=== PATIENT | male | born 1935 | race Caucasian/White ===

== ENCOUNTER 2017-09-04 23:57 | Inpatient (IN) | payer MEDICARE ==
[~2017-09-04] VITALS: Ht 182.9 cm; Wt 134.8 kg
--- NOTE | ~2017-09-04 | CN ---
PATIENT NAME:NURIA ROSAS MEDICAL RECORD: [id number] : 39 LOCATION:. D.2134 ADMIT DATE: 09/05/17 ACCOUNT: [id number] CONSULTING PHYSICIAN: TIMO RANDOLPH MD REFERRING PHYSICIAN: TIMOTHY JON MD DATE OF CONSULTATION: 09/23/2017 CONSULT REQUESTING PHYSICIAN: Dr. Ferris. HISTORY OF PRESENT ILLNESS: Mr. Rosas is a 81-year-old gentleman who is a very poor historian. The patient was transferred from another facility on 09/06/2017 for higher level of care. Over there, the patient presented with shortness of breath and having hematemesis and also bleeding. Suprapubic catheter was placed in for urinary retention. He is also complaining of shortness of breath, cough with very little sputum production. Initially, he has leukocytosis up to 23,000 and the patient was in oonef-nf-asnukop renal failure. Now, the repeat chest x-ray on 09/21/2017 showed that the patient has right-sided pleural effusion, which has not been resolving. There is also consolidation of the lower lobe. REVIEW OF SYSTEMS: Mainly in the history of present illness. PAST MEDICAL HISTORY: 1. COPD. 2. Hypertension. 3. Coronary artery disease. 4. Atrial fibrillation. 5. He has a history of skin cancer. 6. He also has history of gastroesophageal reflux disease. 7. Ascites. PAST SURGICAL HISTORY: 1. He has suprapubic catheter placement in the past. 2. Prostatectomy. ALLERGIES: There are no known drug allergies. PRESENT MEDICATIONS: On ethology, it is reviewed. PERSONAL SOCIAL HISTORY: The patient is an ex-smoker. He is a nondrinker. FAMILY HISTORY: Significant for parents have lung disease and cancer. PHYSICAL EXAMINATION: GENERAL: Now, the patient is lying comfortably in bed. He is not in acute distress. VITAL SIGNS: The blood pressure is 100/59, pulse is 70, respirations 18, temperature is 97.8, SpO2 is 97% on 4 liters nasal cannula. HEENT: Conjunctivae pink, sclerae nonicteric. NECK: Neck is supple. No JVD. CHEST: There is decreased breath sound at the right base. There are crackles, wheeze on forceful expiration. HEART: Rhythm regular, normal sound, no murmur. ABDOMEN: Abdomen is soft. Bowel sounds present. No hepatosplenomegaly. RECTAL: Deferred. EXTREMITIES: No cyanosis, no clubbing. There are 2+ pedal edema. CONSULT REPORT [id number] NURIA ROSAS CENTRAL NERVOUS SYSTEM: The patient is awake and alert. There is no obvious cranial nerve abnormality. The gait was not tested. IMAGING: Chest radiograph on 09/21/2017, there is a large right-sided pleural effusion, there is small left-sided pleural effusion, and there is consolidation of the right lower lobe. OTHER LABORATORY DATA: CBC: The WBC is 9.5, hemoglobin 8.8, hematocrit 30.9, and the platelet count 217. Chemistry: Sodium 142, potassium is 4.4, BUN is 41, and creatinine 2.5. IMPRESSION: 1. Acute hypoxic respiratory failure. 2. Left pleural effusion, possible parapneumonic. 3. Pneumonia, right lower lobe, most likely hospital-acquired pneumonia. 4. Leukocytosis. This has been improving. 5. Upntl-qg-sicyrbl renal failure. 6. Cirrhosis of liver. RECOMMENDATION: 1. I will check the CT scan of the chest. Start him on cefepime and Levaquin IV. 2. Supplemental oxygen. 3. Albuterol and ipratropium nebulizer. 4. Brovana and budesonide nebulizer. 5. Stop the Advair inhaler. 6. Further recommendations of the CT scan of the chest. Dr. Ferris, thank you for involving me in the care of Mr. Rosas. TRANSINT:[id number] Voice Confirmation ID: [id number] DOCUMENT ID: [id number] TIMO RANDOLPH MD at 1340 CC: EMIL FERRIS [id number] DICTATION DATE: 09/23/17 1724 AIRLINE RESERVATIONIST: 09/23/17 1849 ADM IN [id number] [place] [address]
--- NOTE | ~2017-09-04 | HEMODYNAMI ---
PATIENT:NURIA SUTTON MEDICAL RECORD: [id number] : 39 [id number] ADMISSION DATE: 09/05/17 Generatedon:09/10/201711:16 Patient name: NURIA SUTTON Patient #: [id number] SSN: : 1935 Date of study: 09/10/2017 Page: Of Hemodynamic Procedure Report Patient Data Patient Demographics Procedure consent was obtained First Name: NURIA Gender: Male Last Name: LESLEY : 1935 Middle Initial: E Age: 81 year(s) Patient #: [id number] Race: Unknown Additional ID: [id number] Contact details Address: [address] [address] State: [place] City: [place] Zip code: [address] Past Medical History Allergies: No known allergies Admission Admission Data Admission Date: 09/05/2017 Admission Time: 2:00 Room #: 2129 Procedure Procedure Types Cath Procedure Peripheral Cath Diagnostic Procedure Nephro Nephrostogram Thru Existing Procedure Description Procedure Date Procedure Date: 09/10/2017 Procedure Start Time: 10:58 Procedure Staff Name Function Yovanny Villanueva MD Performing Physician Anjali Rojas RT Monitor Nabeel Mccann RT Scrub Chetna Cantu RN Nurse Kirk Silva Nurse Procedure Data Cath Procedure Fluoroscopy Diagnostic fluoroscopy Total fluoroscopy Time: 0.9 time: 0.9 min min Diagnostic fluoroscopy Total fluoroscopy dose: 66 dose: 66 mGy mGy Contrast Material Contrast Material Type Amount (ml) Isovue 300 15 Procedure Medications Medication Administration Route Dosage Lidocaine 1% added to field 20 Heparin Flush Bag added to field 1 bags (1000units/500ml NS) Fentanyl I.V. 50 mcg Hemodynamics Rest Heart Rate: 101 (bpm) Snapshots Pre Cath Intra NCS Post Cath Vital Signs Time Heart Resp SPO2 etCO2 NIBP Rhythm Pain Sedation Rate (ipm) (%) (mmHg) (mmHg) Status Level (bpm) 10:48:31 110 92 28.8 No Cuff A-Fib 0 (11) 10(A) , No pain 10:52:06 107 21 92 34.8 122/63(93) A-Fib 0 (11) 10(A) , No pain 10:57:05 150 29 91 36.3 Measuring A-Fib 0 (11) 10(A) , No pain 10:58:13 153 17 91 33.3 Out of A-Fib 0 (11) 10(A) range , No pain 11:01:50 81 64 95 31.8 No Cuff A-Fib 0 (11) 10(A) , No pain 11:03:00 86 16 94 29.5 92/73(82) A-Fib 0 (11) 10(A) , No pain 11:06:59 28 87/47(63) A-Fib 0 (11) 10(A) , No pain 11:09:47 36.3 108/59(80) A-Fib 0 (11) 10(A) , No pain 11:13:47 0 No Cuff A-Fib 0 (11) 10(A) , No pain Medications Time Medication Route Dose Verified Delivered Reason Notes Effec tiveness by by 10:08:07 Lidocaine 1% added 20ml to vial field 10:08:31 Heparin Flush added 1 Bag to bags (1000units/500ml field NS) 10:59:15 Fentanyl I.V. 50 Yovanny [facility] Rich Silva MD Procedure Log Time Note 9:53:44 Use device set IR Diagnostic 9:54:02 Sterile Angiographic Pack opened to sterile field. 9:54:03 Bag Decanter (2002S) opened to sterile field. 10:08:07 Lidocaine 1% 20ml vial added to field was administered by ; ; 10:08:31 Heparin Flush Bag (1000units/500ml NS) 1 bags added to field was administered by ; ; 10:31:10 Chetna Cantu RN sent for patient. Start room use. 10:31:34 Time tracking: Regular hours 10:31:46 Plan of Care:Hemodynamics will remain stable., Cardiac rhythm will remain stable., Comfort level will be maintained., Respiratory function will remain adequate., Patient/ family verbilizes understanding of procedure., Procedure tolerated without complication., Recovers from procedure without complications.. 10:31:57 Patient received from [place] to IR Alert and oriented. Tansferred to table in RIGHT LATERAL position. 10:32:38 Correct patient and procedure confirmed by team. 10:32:43 Signed procedure consent form obtained from patient. 10:33:00 ECG and BP/O2 sat monitors applied to patient. 10:33:09 Full Disclosure recording started 10:33:10 - 10:33:21 H&P Date Dictated: 09/10/2017 Within 30 days and on chart.. 10:33:25 Pre-procedure instructions explained to patient. 10:33:27 Pre-op teaching completed and patient verbalized understanding. 10:33:35 Family unavailable. 10:33:39 Patient NPO since Midnight. 10:34:05 Patient allergic to No known allergies 10:34:19 Is the patient allergic to Iodine/contrast media? No. 10:34:24 Is patient on blood thinner?No 10:34:28 Patient diabetic? No. 10:34:33 - 10:34:35 ----Pre-sedation anethsthesia assessment.---- 10:34:48 Previous problem with sedation/anesthesia? No ? 10:34:55 Snore? Yes 10:35:04 Sleep apnea? No 10:35:15 Deviated septum? No 10:35:19 Opens mouth fully? Yes 10:35:22 Sticks out tongue? Yes 10:36:16 Dentures? No ? 10:36:19 Airway obstruction? No ? 10:36:35 - 10:37:42 Patient pain scale 8/10 STOMACH. 10:37:58 IV patent on arrival in left forearm with 0.9% NaCl at KVO. 10:38:24 LEFTLumbar area was prepped with chlora-prep and draped in sterile fashion 10:39:25 Alarms reviewed by R. N. 10:39:29 Sharps counted by scrub and verified by R.N. 10:39:33 - 10:48:40 VITALS STARTED 10:50:56 Baseline sample Acquired. 10:56:20 Physician arrived 10:56:22 --------ALL STOP TIME OUT------ 10:56:23 Final Timeout: patient, procedure, and site verified with staff and physician. All members of the team are in agreement. 10:56:35 Lumbar site verified by team. 10:57:18 Sedation plan: IV Moderate Sedation Medication:Versed, Fentanyl 10:58:16 Procedure started. 10:59:15 Fentanyl 50 mcg I.V. was administered by Kirk Silva; ; 11:00:19 CONTRAST INJECTED THRU EXISTING NEPH TUBE 11:00:30 right elbow with redness and edema noted prior to starting case 11:02:45 CORAZON .035 15cm wire ([id number]) opened to sterile field. 11:03:47 NEPH TUBE REMOVED 11:04:38 Procedure ended.(Physican Out) 11:05:16 Fluoroscopy time 00.90 minutes. 11:05:26 Flurop Dose total: 66 11:05:26 Fluoroscopy dose: 66 mGy 11:05:35 Contrast amount:Isovue 300 15ml. 11:05:39 Sharps counted by scrub and verified by R.N. 11:05:56 Insertion/operative site no bleeding no hematoma. 11:06:13 Post-op/insertion site Left Lumbar area dressed using a 4 x 4 and Tegaderm. 11:06:28 Post Lumbar area:stable 11:06:42 Post procedure instruction explained to patient.Patient verbalizes understanding. 11:14:42 Procedure and supply charges have been captured, reviewed, submitted an d are correct. 11:15:02 Report given to Med II. 11:15:10 Patient transfered to Med II with Bed. 11:15:59 Vital chart was stopped Device Usage Item Name Manufacture Quantity Catalog Hospital Part Current Minimal Lot# / Number Charge Number Stock Stock Serial# Code Sterile Cardinal 1 [id number] 5 Angiographic Health Pack Bag Decanter Microtek 1 [id number] () [employer] CORAZON .035 [facility] 1 [id number] 5 [id number] 15cm wire ([id number]) Signature Audit Paramount Stage Time Signature Unsigned Intra-Procedure 09/10/2017 Anjali 11:15:56 AM Bob ESPINOZA (R) (CV) Signatures Monitor : Anjali Signature : Bob RT Date : Time : [address] [place] [address]
--- NOTE | ~2017-09-04 | CN ---
PATIENT NAME:NURIA SUTTON MEDICAL RECORD: [id number] : 39 LOCATION:D. D.2134 ADMIT DATE: 09/05/17 ACCOUNT: [id number] CONSULTING PHYSICIAN: JUAN PETTY MD REFERRING PHYSICIAN: TIMOTHY JON MD DATE OF CONSULTATION: 10/03/2017 CONSULTATION NOTE ADDENDUM CHIEF COMPLAINT: Kidney failure. The patient is somnolent. He is arousable, but he cannot give me any history; therefore, he cannot give me any aggravating or alleviating factors and also no review of systems. I am asked to place a hemodialysis catheter. I plan to place this at any site. This is a consultation note addendum. For the typed portion of consult note, please see the chart. This would include the past medical and surgical history, current medications, social history, allergies as well as family history. REVIEW OF SYSTEMS: Unobtainable from the patient due to his somnolence and altered mental status, which I believe is likely metabolic in origin. PHYSICAL EXAMINATION: GENERAL: The patient does appear acutely ill. Also appears chronically ill. VITAL SIGNS: Reviewed. EARS: External ears appear normal. EYES: Unable to assess as he will not keep his eyes open for very long. NECK: Trachea is midline. CHEST: No intercostal retractions. PULMONARY: Decreased breath sounds in the bases. Nonlabored. ABDOMEN: No peritonitis with movement. EXTREMITIES: No peripheral cyanosis. INTEGUMENT: There is an intertriginous rash. IMPRESSION: End-stage renal disease and need of hemodialysis access for hemodialysis. PLAN: Placement of HemoSplit catheter, which is a tunneled cuffed dual-lumen hemodialysis catheter at any site, tomorrow. TRANSINT:[id number] Voice Confirmation ID: [id number] DOCUMENT ID: [id number] JUAN PETTY MD at 1042 CC: [id number] DICTATION DATE: 10/03/17 1238 CVICU NURSE: 10/03/171915 DIS IN 10/12/17 [facility] [address] [place] [address]
--- NOTE | ~2017-09-04 | OP ---
PATIENT NAME: NURIA SUTTON MEDICAL RECORD: [id number] :39 LOCATION:[facility] D.2310 ADMISSION DATE:09/05/17 SURGEON: BALTAZAR LUIS MD DATE OF OPERATION: 09/05/2017 SURGEON: Baltazar Luis MD ANESTHESIA: TIVA by Eric Doyle CRNA PREOPERATIVE DIAGNOSES: Retroperitoneal and pelvic hematoma, gross hematuria, acute renal failure with bilateral hydronephrosis. PROCEDURES: Cystoscopy, right retrograde pyelogram, right ureteral stent insertion 6-Qatari x 26 cm without string attached, Vasquez catheter insertion over a guidewire. FINDINGS: Uncontrolled atrial fibrillation with drop beats on Cardizem drip. 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 No clots in the bladder. Unable to see the suprapubic tube as the bladder is highly distorted by pelvic hematoma. On the right side with retrograde pyelogram, there was hydronephrosis from the renal pelvis to the UV junction with a tortuous corkscrew twisted ureter. We were unable to access the left ureteral orifice as it is facing away from the scope due to distortion from the pelvic hematoma. ESTIMATED BLOOD LOSS: None. CLINICAL HISTORY: This is a 81-year-old male transferred by Dr. Pineda from [facility] with a suprapubic tube that is not draining or draining bloody urine. He had a [facility]Light TURP in February of [address] Mittal of [facility]. He had been in chronic urinary retention. He continues to be in retention. He eventually had a suprapubic tube placed. This tube was changed on 08/31/2017, by his home care nurse. Apparently, he has also had a Citrobacter UTI some time recently. Somehow he ended up in [facility] and he was found to have an elevated D-dimer of 3.35. 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 For whatever reason, they started him on Lovenox and he started having blood in the urine and poor drainage from his bladder. His abdomen is a very distended. He had quite a bit of tenderness on the left side of his abdomen when I examined him. I obtained a stat CT scan in case he had a bladder rupture and urine leak into his peritoneum. What the CT scan showed instead was that he has a very large left rectus muscle hematoma and it is contiguous with a large pelvic hematoma which is extraperitoneal and it is compressing the bladder from the sides laterally. There is also bilateral hydroureteronephrosis. There are no stones seen. Most likely, the hematoma was causing the bilateral obstruction. His baseline creatinine or at least the creatinine that was found in [place] was 2. Today, his creatinine has risen to 4. I am not going to bring him to the OR for bilateral retrograde pyelograms and bilateral ureteral stent insertion. We attempted to do this earlier today, but then he was found to have uncontrolled atrial fibrillation. He was then seen in consultation by Dr. Hay and started on the Cardizem drip to try to control his rate. Initially, his rate was in the 150 range. Because we fear that if we intubate this man he will never be extubated. We decided to try this procedure with TIVA. Because he is under sedation and due to his poor cardiac status, we need to work as expeditiously as possible. DESCRIPTION OF PROCEDURE: The patient was given IV sedation with blanket and OPERATIVE REPORT [id number] NURIA SUTTON pillows giving his chest to be higher about 45 degrees off the bed. He was placed in the dorsal lithotomy position and prepped and draped. A 21-Qatari cystoscope with 30-degree lens was used for visualization. Going in to penile urethra, it was normal. Prostatic urethra at the apex shows signs of previous resection. Then, there are lot of cross healing and scarring and the path to the bladder neck is actually extremely difficult due to stricturing of the bladder neck. I managed to finally get into the bladder with the cystoscope. He has a heavily trabeculated bladder. No bladder tumors are seen. I tried to look for the suprapubic tube, but I cannot find it. The Suprapubic tube is in the bladder according to the CT; however, due to the tortuosity of the bladder, I cannot see it. I am not going to waste time to even look for it either due to the necessity of getting this procedure done as quickly as possible. We did see clear irrigation draining out from the suprapubic tube with cystoscope in his bladder. I had the suprapubic tube clamped off with a hemostat to allow the bladder to distend somewhat. Both ureteral orifices could be seen. However, due to the distortion of the lateral wall by the pelvic hematoma, I could not get into the left ureteral orifice at all. The ureteral orifice was actually facing away from me towards the patient's head. On the right side, I managed to use an angled wire and get into the right ureteral orifice. This was followed by a 5-Qatari open-ended ureteral catheter. We then removed the wire and performed a retrograde pyelogram. This showed a very tortuous and corkscrew twisted ureter. By using a Sensor wire and gradually straightening out the corkscrew with a Sensor wire and following up with a ureteral catheter, we were able to finally get into the right renal pelvis. At this point, the open-ended ureteral catheter was removed. Over the Sensor wire, we inserted the 6-Qatari x 26 cm ureteral stent. The string on the distal end of the stent was removed prior to insertion. Once the stent was in correct position, we slowly withdrew the wire to allow the proximal end to coil within the renal pelvis. Distal end was pushed into the bladder entirely using a pusher and the wire was entirely removed. At this point, because he had been on Lovenox, he started to have gross hematuria in the bladder just from the scope rubbing his bladder surfaces and the prosthetic surface. I decided to put a Vasquez catheter into the urethra also, so that if he needs to have continuous bladder irrigation we can provide it with through and through irrigation with an inflow through the Vasquez catheter and outflow through the suprapubic tube or vice versa. Through the scope, we inserted a Sensor wire into the bladder. The scope was then removed, leaving the wire in place. A 16-Qatari [place] tip Vasquez catheter was then inserted into the bladder over the wire. Once we started at the urinary drainage, we then inflated the Vasquez catheter balloon with 10 cc of sterile water. The wire was then entirely removed and Vasquez catheter was put to bag drainage. In the meantime, the patient is showing an irregular cardiac response to his atrial fibrillation with drop beats. We will put him into the cardiovascular ICU for close monitoring. TRANSINT:[id number] Voice Confirmation ID: [id number] DOCUMENT ID: [id number] BALTAZAR LUIS MD at 0645 CC: [id number] DICTATION DATE: 09/05/172233 IC DESIGNER CUSTOM: 09/05/172323 ADM IN [facility] [address] [place] [address]
--- NOTE | ~2017-09-04 | HEMODYNAMI ---
PATIENT:NURIA SUTTON MEDICAL RECORD: [id number] : 39 LOCATION:[facility] [address] [id number] ADMISSION DATE: 09/05/17 Generatedon:09/07/201712:05 Patient name: NURIA SUTTON Patient #: [id number] SSN: : 1935 Date of study: 09/07/2017 Page: Of Hemodynamic Procedure Report Patient Data Patient Demographics Procedure consent was obtained First Name: NURIA Gender: Male Last Name: LESLEY : 1935 Middle Initial: E Age: 81 year(s) Patient #: [id number] Race: Unknown Additional ID: [id number] Contact details Address: [place] [address] State: [place] City: [place] Zip code: [address] Admission Admission Data Admission Date: 09/05/2017 Admission Time: 2:00 Room #: [facility] Procedure Procedure Types Cath Procedure Peripheral Cath Diagnostic Procedure Nephro Nephrostomy Tubes Procedure Description Procedure Date Procedure Date: 09/07/2017 Procedure Start Time: 10:28 Procedure Staff Name Function Yovanny Villanueva MD Performing Physician Nabeel Mccann RT Monitor Anjali Rojas RT Scrub Chetna Cantu RN Nurse Kirk Partida Procedure Data Cath Procedure Fluoroscopy Diagnostic fluoroscopy Total fluoroscopy Time: time: 19.3 min 19.3 min Diagnostic fluoroscopy Total fluoroscopy dose: dose: 1118 mGy 1118 mGy Contrast Material Contrast Material Type Amount (ml) Isovue 300 50 Diagnostic catheters Device Type Used For End Catheter Placement Merit Impress KA2 5Fr 65CM catheter ([id number]) Procedure Medications Medication Administration Route Dosage Versed I.V. 0.5 mg Hemodynamics Rest Snapshots Pre Cath Intra NCS Post Cath Vital Signs Time Heart SPO2 etCO2 NIBP (mmHg) Rhythm Pain Sedation Rate (%) (mmHg) Status Level (bpm) 10:04:21 133 93 20 106/66(85) NSR 0 (11) 10(A) , No pain 10:08:29 138 92 18 100/80(90) NSR 0 (11) 10(A) , No pain 10:12:37 132 93 20 99/73(81) NSR 0 (11) 10(A) , No pain 10:16:47 133 92 32 115/70(86) NSR 0 (11) 10(A) , No pain 10:21:23 133 95 28 Acquisition NSR 0 (11) 10(A) error , No pain 10:25:12 128 95 29 98/46(0) NSR 0 (11) 10(A) , No pain 10:29:12 127 91 45 95/38(0) NSR 0 (11) 10(A) , No pain 10:33:11 128 90 45 79/55(0) NSR 0 (11) 10(A) , No pain 10:37:11 126 89 45 94/59(0) NSR 0 (11) 10(A) , No pain 10:41:11 122 87 45 85/52(0) NSR 0 (11) 10(A) , No pain 10:50:36 117 95 45 90/58(0) NSR 0 (11) 10(A) , No pain 10:55:35 96 95 45 94/55(0) NSR 0 (11) 10(A) , No pain 11:00:34 108 83 0 90/58(0) NSR 0 (11) 10(A) , No pain 11:05:33 98 90 0 77/53(0) NSR 0 (11) 10(A) , No pain 11:10:32 119 93 0 Auto NIBP NSR 0 (11) 10(A) off , No pain 11:13:00 119 94 0 86/58(0) NSR 0 (11) 10(A) , No pain 11:17:59 119 96 0 86/48(0) NSR 0 (11) 10(A) , No pain 11:22:58 117 96 0 90/51(0) NSR 0 (11) 10(A) , No pain 11:27:57 118 96 0 104/61(0) NSR 0 (11) 10(A) , No pain 11:32:56 117 97 0 90/53(0) NSR 0 (11) 10(A) , No pain 11:37:55 120 98 0 99/61(0) NSR 0 (11) 10(A) , No pain 11:42:54 121 98 0 115/53(0) NSR 0 (11) 10(A) , No pain 11:47:53 106 98 0 72/39(0) NSR 0 (11) 10(A) , No pain 11:52:52 121 97 0 97/65(0) NSR 0 (11) 10(A) , No pain 11:57:51 0 Auto NIBP NSR 0 (11) 10(A) off , No pain 12:02:50 0 Auto NIBP NSR 0 (11) 10(A) off , No pain Medications Time Medication Route Dose Verified Delivered Reason Notes Effective ness by by 10:14:19 Versed I.V. 0.5 Yovanny Bradley for mg Rich Silva sedation Procedure Log Time Note 9:44:30 Nabeel Mccann RT (R) (CV) sent for patient. Start room use. 9:44:38 Time tracking: Regular hours 9:44:54 Plan of Care:Hemodynamics will remain stable., Cardiac rhythm will remain stable., Comfort level will be maintained., Respiratory function will remain adequate., Patient/ family verbilizes understanding of procedure., Procedure tolerated without complication., Recovers from procedure without complications.. 9:45:05 Patient received from ICU to IR Alert and oriented. Tansferred to table in Prone position. 9:45:06 Correct patient and procedure confirmed by team. 9:45:08 Signed procedure consent form obtained from patient. 9:45:09 ECG and BP/O2 sat monitors applied to patient. 9:45:10 Full Disclosure recording started 9:45:10 - 9:45:14 H&P Date Dictated: 09/07/2017 Within 30 days and on chart.. 9:45:14 Pre-procedure instructions explained to patient. 9:45:15 Pre-op teaching completed and patient verbalized understanding. 9:45:17 Family unavailable. 9:45:24 Patient NPO since Midnight. 9:45:30 Use device set IR Diagnostic 9:45:31 Sterile Angiographic Pack opened to sterile field. 9:45:32 Bag Decanter (2002S) opened to sterile field. 9:45:40 Is the patient allergic to Iodine/contrast media? No. 9:45:43 Is patient on blood thinner?No 9:45:45 Patient diabetic? No. 9:45:47 - 9:45:47 ----Pre-sedation anethsthesia assessment.---- 9:46:30 Previous problem with sedation/anesthesia? No ? 9:46:32 Snore? Yes 9:46:35 Sleep apnea? Yes 9:46:37 Deviated septum? No 9:46:38 Opens mouth fully? Yes 9:46:39 Sticks out tongue? Yes 9:46:46 Airway obstruction? Yes copd asthma 9:46:58 Dentures? Yes out 9:47:03 Patient pain scale 0/10 no pain. 9:49:03 IV patent on arrival in right hand with 0.9% NaCl at O. 9:49:06 Sharps counted by scrub and verified by R.N. 9:49:07 Alarms reviewed by R. N. 9:49:22 Lumbar area was prepped with chlora-prep and draped in sterile fashion 10:03:10 Vital chart was started 10:03:11 Baseline sample Acquired. 10:14:19 Versed 0.5 mg I.V. was administered by Kirk Silva; for sedation ; 10:15:29 Baseline sample Acquired. 10:26:05 Physician arrived 10:26:07 --------ALL STOP TIME OUT------ 10:26:08 Final Timeout: patient, procedure, and site verified with staff and physician. All members of the team are in agreement. 10:26:12 Lumbar site verified by team. 10:26:20 Sedation plan: TIVA Medication:Propofol 10:28:18 Procedure started. 10:28:24 Local anesthetic to Lumbar area with Lidocaine 1% by Yovanny Villanueva MD.INITIAL ACCESS ONLY 10:28:33 STOPCOCK 3-Way Large Bore ([id number]) opened to sterile field. 10:28:34 CHIBA 20 X 15 needle opened to sterile field. 10:28:35 KIT, INTRODUCER ACCUSTICK II W/C ([id number]) opened to sterile field. 10:41:06 Vital chart was stopped 10:49:46 Vital chart was started 11:34:39 ROADRUNNER .035 145 glide wire (Y68897) opened to sterile field. 11:34:41 CHIBA 20 X 15 needle opened to sterile field. 11:35:39 A [employer] KA2 5Fr 65CM catheter ([id number]) was advanced over the wire and used for . 11:40:32 GIFFORD 260 wire (H12045) opened to sterile field. 11:40:39 Cofield Sci 8FR X 26 CM Ureteral Stent ([id number]) opened to sterile field. 11:44:23 PEELAWAY 9FR Safe Sheath (SU9) opened to sterile field. 11:44:39 Abscession 8Fr drainage catheter ([id number]) opened to sterile field. 11:50:53 Procedure ended.(Physican Out) 11:54:26 Fluoroscopy time 19.30 minutes. 11:54:33 Fluoroscopy dose: 1118 mGy 11:54:33 Flurop Dose total: 1118 11:54:55 Contrast amount:Isovue 300 50ml. 11:54:58 Sharps counted by scrub and verified by R.N. 11:55:16 Insertion/operative site no bleeding no hematoma. 11:55:21 Post Lumbar area:stable 11:55:24 Post procedure instruction explained to patient.Patient verbalizes understanding. 11:55:25 Procedure and supply charges have been captured, reviewed, submitted an d are correct. 12:05:21 Report given to ICU. 12:05:26 Patient transfered to ICU with Bed. 12:05:54 Vital chart was stopped Device Usage Item Name Manufacture Quantity Catalog Hospital Part Current Minima l Lot# / Number Charge Number Stock Stock Serial# Code Sterile Cardinal 1 [id number] 5 Angiographic Health Pack Bag Decanter Microtek 1 2001S 995167 88685 [id number] 5 (2001S) [employer] Inc[employer] STOPCOCK [facility] 1 [id number] 798513 5958 333739 5 [id number] 3-Way Large Bore (H45274) CHIBA 20 X [facility] 2 L48080 192345 406852 5 [id number] 15 needle [id number] KIT, Cofield 1 [id number] 931503 081289 909517 5 [id number] INTRODUCER Scientific ACCUSTICK II W/C ([id number]) ROADRUNNER [facility] 1 Q49963 777790 192617 253164 5 [id number] .035 145 glide wire (R87865) [facility] 1 [id number] 800512 265215 5 Impress KA2 5Fr 65CM catheter ([id number]) GIFFORD 260 [facility] 1 X02273 920598 021054 5 [id number] wire (X33332) Cofield Sci Cofield 1 [id number] 114181 883884 047806 5 8FR X 26 CM Scientific Ureteral Stent ([id number]) PEELAWAY 9FR Microtek 1 SU9 850978 710897 383826 5 Safe Sheath [employer] (SU9) Abscession Angiodynamics 1 [id number] 560125 534607 906256 5 8Fr drainage catheter ([id number]) Signature Audit Brashear Stage Time Signature Unsigned Intra-Procedure 09/07/2017 Nabeel 12:05:52 PM Shuffield RT (R) (CV) Signatures Monitor : Nabeel Signature : Francineield RT Date : Time : [place] [id number] [facility] [place] [address]
[2017-09-05 02:29] VITALS: BP 121/76; BMI 35.6
[2017-09-05] MEDS ORDERED: ADVAIR 250/501 DISK INH (02:55)
[2017-09-05] MEDS ORDERED: ZYLOPRIM100 MG PO (02:56)
[2017-09-05] MEDS ORDERED: PROSCAR5 MG PO (02:57)
[2017-09-05] MEDS ORDERED: FUROSEMIDE20 MG PO (02:58)
[2017-09-05] MEDS ORDERED: ATROVENT 0.02%2.5 ML UPD (03:01)
[2017-09-05] MEDS ORDERED: BIMATOPROST2.5 ML EACH EYE (03:02)
[2017-09-05] MEDS ORDERED: XALATAN 0.0052.5 ML EACH EYE (03:02)
[2017-09-05] MEDS ORDERED: OMEPRAZOLE20 M1 PO (03:03)
[2017-09-05] MEDS ORDERED: HYTRIN5 MG PO (03:04)
[2017-09-05] MEDS ORDERED: PERCOCET 5-3251 TAB PO (03:05)
[2017-09-05 05:09] VITALS: BP 121/76
[2017-09-05 07:07] LABS: HEMATOCRIT 26.5 % (42.0-54.0); HEMOGLOBIN 8.3 g/dL (13.5-17.5); MCH 27.7 pg (26.0-34.0); MCHC 31.3 g/dL (31.0-37.0); MCV 88.3 fL (80.0-100.0); MEAN PLATELET VOLUME 10.2 fL (7.4-10.4); PLATELET COUNT 296 10x3/uL (130-400); WBC 20.5 10x3/uL (4.8-10.8)
[2017-09-05 07:26] LABS: ALBUMIN 2.2 g/dL (3.4-5.0); ANION GAP 11.8 mmol/L (8-16); BILIRUBIN - TOTAL 0.41 mg/dL (0.2-1.3); CALCIUM 8.6 mg/dL (8.5-10.1); CARBON DIOXIDE 30.2 mmol/L (21.0-32.0); PROTEIN - SERUM 6.3 g/dL (6.4-8.2)
[2017-09-05 07:28] LABS: LYMPHOCYTES 7 % (15-50); MONOCYTES 4 % (2-11); NEUTROPHILS 87 % (40-80); PLATELET ESTIMATE NORMAL
[2017-09-05 07:41] VITALS: BP 116/61
[2017-09-05 08:16] LABS: INR 1.49 (0.85-1.17); PROTIME 17.5 SECONDS (11.6-15.0)
[2017-09-05 10:26] LABS: HEMATOCRIT 26.1 % (42.0-54.0); HEMOGLOBIN 8.3 g/dL (13.5-17.5)
[2017-09-05 15:49] VITALS: BP 95/49
[2017-09-05 16:23] LABS: HEMATOCRIT 25.9 % (42.0-54.0); HEMOGLOBIN 8.2 g/dL (13.5-17.5)
[2017-09-05 20:58] VITALS: BP 88/48
[2017-09-05 23:45] VITALS: BP 105/70
[2017-09-06] VITALS (24 sets, daily range): BP systolic 76–123; BP diastolic 51–79; BMI 39.5
[2017-09-06 00:43] LABS: HEMATOCRIT 23.5 % (42.0-54.0)
[2017-09-06 00:44] LABS: HEMOGLOBIN 7.4 g/dL (13.5-17.5)
[2017-09-06 08:22] LABS: BASOPHILS 0 % (0-2); EOSINOPHILS 0 % (0-7); HEMATOCRIT 26.6 % (42.0-54.0); HEMOGLOBIN 8.4 g/dL (13.5-17.5); IMMATURE GRANULOCYTES 0.6 % (0-5); LYMPHOCYTES 6.3 % (15-50); MCH 27.8 pg (26.0-34.0); MCHC 31.6 g/dL (31.0-37.0); MCV 88.1 fL (80.0-100.0); MEAN PLATELET VOLUME 9.3 fL (7.4-10.4); MONOCYTES 12.9 % (2-11); NEUTROPHILS 80.2 % (40-80); PLATELET COUNT 244 10x3/uL (130-400); RBC 3.02 10x6/uL (4.20-6.10); RDW 14.8 % (11.5-14.5)
[2017-09-06 08:40] LABS: CALCIUM 8.2 mg/dL (8.5-10.1); CARBON DIOXIDE 29.9 mmol/L (21.0-32.0); CREATININE - SERUM 4.5 mg/dL (0.6-1.3)
[2017-09-06 08:42] LABS: ANION GAP 10.1 mmol/L (8-16)
[2017-09-06 15:02] LABS: APPEARANCE CLOUDY (CLEAR); BILIRUBIN NEGATIVE (NEGATIVE); COLOR BROWN (YELLOW); GLUCOSE NEGATIVE (NEGATIVE); KETONE NEGATIVE (NEGATIVE); NITRITE NEGATIVE (NEGATIVE); PROTEIN 3+ mg/dL (NEGATIVE); SPECIFIC GRAVITY 1.015 (1.005-1.020); UROBILINOGEN NORMAL (NORMAL)
[2017-09-06 15:04] LABS: BACTERIA MODERATE /hpf (NONE SEEN); EPITHELIAL CELLS 0-5 /hpf (0-5); MUCUS <1+ /lpf (NONE SEEN); RED CELLS - URINE >50 /hpf (0-5)
[2017-09-06 15:40] LABS: HEMATOCRIT 24.6 % (42.0-54.0); HEMOGLOBIN 8.3 g/dL (13.5-17.5)
[2017-09-06 21:53] LABS: HEMATOCRIT 25.1 % (42.0-54.0); HEMOGLOBIN 8.3 g/dL (13.5-17.5)
[2017-09-07] VITALS (22 sets, daily range): BP systolic 85–123; BP diastolic 23–83
[2017-09-07 04:39] LABS: APTT 38.4 SECONDS (22.8-39.4); HEMATOCRIT 24.4 % (42.0-54.0); INR 1.28 (0.85-1.17); LYMPHOCYTES 8.1 % (15-50); MCH 28.6 pg (26.0-34.0); MCHC 32.8 g/dL (31.0-37.0); MCV 87.1 fL (80.0-100.0); MEAN PLATELET VOLUME 9.3 fL (7.4-10.4); PLATELET COUNT 288 10x3/uL (130-400); PROTIME 15.6 SECONDS (11.6-15.0); RDW 15.1 % (11.5-14.5); WBC 18.3 10x3/uL (4.8-10.8)
[2017-09-07 04:51] LABS: ANION GAP 12.7 mmol/L (8-16); CALCIUM 8.5 mg/dL (8.5-10.1); CARBON DIOXIDE 25.7 mmol/L (21.0-32.0); CREATININE - SERUM 3.9 mg/dL (0.6-1.3); POTASSIUM - SERUM 5.4 mmol/L (3.5-5.1)
[2017-09-07 12:16] LABS: HEMATOCRIT 25.1 % (42.0-54.0); HEMOGLOBIN 8.1 g/dL (13.5-17.5)
[2017-09-07 18:47] LABS: HEMATOCRIT 24.2 % (42.0-54.0); HEMOGLOBIN 7.7 g/dL (13.5-17.5)
[2017-09-08] VITALS (23 sets, daily range): BP systolic 86–119; BP diastolic 48–85
[2017-09-08 00:47] LABS: HEMATOCRIT 22.8 % (42.0-54.0)
[2017-09-08 01:03] LABS: HEMOGLOBIN 7.2 g/dL (13.5-17.5)
[2017-09-08 06:07] LABS: BASOPHILS 0 % (0-2); EOSINOPHILS 0.1 % (0-7); HEMATOCRIT 23.4 % (42.0-54.0); IMMATURE GRANULOCYTES 0.4 % (0-5); LYMPHOCYTES 6.6 % (15-50); MCH 27.8 pg (26.0-34.0); MCHC 31.2 g/dL (31.0-37.0); MEAN PLATELET VOLUME 9.4 fL (7.4-10.4); MONOCYTES 11.8 % (2-11); NEUTROPHILS 81.1 % (40-80); PLATELET COUNT 264 10x3/uL (130-400); RBC 2.63 10x6/uL (4.20-6.10); RDW 15.5 % (11.5-14.5); WBC 13.8 10x3/uL (4.8-10.8)
[2017-09-08 06:46] LABS: HEMOGLOBIN 7.3 g/dL (13.5-17.5)
[2017-09-08 07:01] LABS: ANION GAP 12.6 mmol/L (8-16); CARBON DIOXIDE 25.3 mmol/L (21.0-32.0); CREATININE - SERUM 3.1 mg/dL (0.6-1.3); POTASSIUM - SERUM 4.9 mmol/L (3.5-5.1)
[2017-09-08 12:48] LABS: APPEARANCE CLOUDY (CLEAR); BILIRUBIN NEGATIVE (NEGATIVE); COLOR PINK (YELLOW); EPITHELIAL CELLS OCC /hpf (0-5); GLUCOSE NEGATIVE (NEGATIVE); KETONE NEGATIVE (NEGATIVE); NITRITE NEGATIVE (NEGATIVE); PROTEIN 3+ mg/dL (NEGATIVE); RED CELLS - URINE >50 /hpf (0-5); UROBILINOGEN NORMAL (NORMAL)
[2017-09-08 12:49] LABS: BACTERIA FEW /hpf (NONE SEEN); MUCUS <1+ /lpf (NONE SEEN)
[2017-09-08 18:19] LABS: HEMATOCRIT 26.4 % (42.0-54.0); HEMOGLOBIN 8.4 g/dL (13.5-17.5)
[2017-09-08 21:36] LABS: HEMOGLOBIN 8.6 g/dL (13.5-17.5)
[2017-09-09] VITALS (10 sets, daily range): BP systolic 93–116; BP diastolic 53–70
[2017-09-09 04:31] LABS: BASOPHILS 0.1 % (0-2); EOSINOPHILS 0.4 % (0-7); HEMATOCRIT 28.2 % (42.0-54.0); HEMOGLOBIN 8.8 g/dL (13.5-17.5); IMMATURE GRANULOCYTES 0.5 % (0-5); LYMPHOCYTES 7.8 % (15-50); MCH 27.8 pg (26.0-34.0); MCHC 31.2 g/dL (31.0-37.0); MCV 89.2 fL (80.0-100.0); MEAN PLATELET VOLUME 9.5 fL (7.4-10.4); NEUTROPHILS 77.2 % (40-80); PLATELET COUNT 258 10x3/uL (130-400); RDW 16.5 % (11.5-14.5); WBC 14.4 10x3/uL (4.8-10.8)
[2017-09-09 04:43] LABS: RBC 3.16 10x6/uL (4.20-6.10)
[2017-09-09 04:47] LABS: CALCIUM 8.1 mg/dL (8.5-10.1); CARBON DIOXIDE 28.3 mmol/L (21.0-32.0); CREATININE - SERUM 2.5 mg/dL (0.6-1.3); POTASSIUM - SERUM 4.3 mmol/L (3.5-5.1)
[2017-09-09 10:00] LABS: HEMATOCRIT 29.1 % (42.0-54.0)
[2017-09-09 16:32] LABS: HEMATOCRIT 28.1 % (42.0-54.0); HEMOGLOBIN 8.8 g/dL (13.5-17.5)
[2017-09-09 22:37] LABS: HEMATOCRIT 28.4 % (42.0-54.0); HEMOGLOBIN 8.7 g/dL (13.5-17.5)
[2017-09-10] VITALS (11 sets, daily range): BP systolic 97–138; BP diastolic 47–80
[2017-09-10 04:59] LABS: BASOPHILS 0.1 % (0-2); EOSINOPHILS 0.7 % (0-7); HEMATOCRIT 28.6 % (42.0-54.0); HEMOGLOBIN 8.8 g/dL (13.5-17.5); IMMATURE GRANULOCYTES 0.6 % (0-5); LYMPHOCYTES 5.2 % (15-50); MCH 27.8 pg (26.0-34.0); MCHC 30.8 g/dL (31.0-37.0); MCV 90.2 fL (80.0-100.0); MEAN PLATELET VOLUME 9.5 fL (7.4-10.4); MONOCYTES 14.8 % (2-11); NEUTROPHILS 78.6 % (40-80); PLATELET COUNT 257 10x3/uL (130-400); RBC 3.17 10x6/uL (4.20-6.10); RDW 16.7 % (11.5-14.5); WBC 17.6 10x3/uL (4.8-10.8)
[2017-09-10 05:05] LABS: ANION GAP 9.5 mmol/L (8-16); CALCIUM 8.2 mg/dL (8.5-10.1); CARBON DIOXIDE 26.4 mmol/L (21.0-32.0); CREATININE - SERUM 2.2 mg/dL (0.6-1.3); POTASSIUM - SERUM 3.9 mmol/L (3.5-5.1)
[2017-09-10 09:52] LABS: HEMATOCRIT 28.1 % (42.0-54.0); HEMOGLOBIN 8.8 g/dL (13.5-17.5)
[2017-09-10 16:21] LABS: HEMATOCRIT 27.8 % (42.0-54.0); HEMOGLOBIN 8.7 g/dL (13.5-17.5)
[2017-09-10 22:36] LABS: HEMATOCRIT 28.2 % (42.0-54.0); HEMOGLOBIN 8.6 g/dL (13.5-17.5)
[2017-09-11 00:51] VITALS: BP 98/45
[2017-09-11 04:32] VITALS: BP 104/54
[2017-09-11 04:42] LABS: BASOPHILS 0.1 % (0-2); EOSINOPHILS 1.2 % (0-7); HEMATOCRIT 28.8 % (42.0-54.0); HEMOGLOBIN 8.9 g/dL (13.5-17.5); IMMATURE GRANULOCYTES 0.5 % (0-5); LYMPHOCYTES 6.8 % (15-50); MCH 27.7 pg (26.0-34.0); MCHC 30.9 g/dL (31.0-37.0); MCV 89.7 fL (80.0-100.0); MEAN PLATELET VOLUME 9.7 fL (7.4-10.4); MONOCYTES 13.4 % (2-11); PLATELET COUNT 248 10x3/uL (130-400); RBC 3.21 10x6/uL (4.20-6.10); RDW 16.6 % (11.5-14.5); WBC 18.7 10x3/uL (4.8-10.8)
[2017-09-11 04:55] LABS: ALBUMIN 1.6 g/dL (3.4-5.0); ANION GAP 9.2 mmol/L (8-16); BILIRUBIN - TOTAL 1.34 mg/dL (0.2-1.3); CALCIUM 8.6 mg/dL (8.5-10.1); CARBON DIOXIDE 26.4 mmol/L (21.0-32.0); CREATININE - SERUM 2.2 mg/dL (0.6-1.3); POTASSIUM - SERUM 3.6 mmol/L (3.5-5.1); PROTEIN - SERUM 6.2 g/dL (6.4-8.2)
[2017-09-11 07:54] VITALS: BP 100/61
[2017-09-11 09:49] LABS: HEMATOCRIT 28.8 % (42.0-54.0); HEMOGLOBIN 8.9 g/dL (13.5-17.5)
[2017-09-11 11:28] VITALS: BP 84/52
[2017-09-11 15:22] VITALS: BP 96/62
[2017-09-11 15:53] LABS: HEMATOCRIT 29.7 % (42.0-54.0); HEMOGLOBIN 9.2 g/dL (13.5-17.5)
[2017-09-11 19:00] VITALS: BP 110/64
[2017-09-11 22:39] LABS: HEMATOCRIT 28.5 % (42.0-54.0); HEMOGLOBIN 8.8 g/dL (13.5-17.5)
[2017-09-12] VITALS: BP 104/62
[2017-09-12 04:00] VITALS: BP 114/65
[2017-09-12 05:36] LABS: BASOPHILS 0.1 % (0-2); EOSINOPHILS 1.2 % (0-7); HEMATOCRIT 29.3 % (42.0-54.0); IMMATURE GRANULOCYTES 0.6 % (0-5); LYMPHOCYTES 6.2 % (15-50); MCH 27.6 pg (26.0-34.0); MCHC 30.7 g/dL (31.0-37.0); MCV 89.9 fL (80.0-100.0); MEAN PLATELET VOLUME 9.6 fL (7.4-10.4); MONOCYTES 9.5 % (2-11); NEUTROPHILS 82.4 % (40-80); PLATELET COUNT 258 10x3/uL (130-400); RBC 3.26 10x6/uL (4.20-6.10); RDW 16.7 % (11.5-14.5); WBC 16.9 10x3/uL (4.8-10.8)
[2017-09-12 05:50] LABS: ALBUMIN 1.6 g/dL (3.4-5.0); ANION GAP 10.3 mmol/L (8-16); BILIRUBIN - TOTAL 1.44 mg/dL (0.2-1.3); CALCIUM 8.6 mg/dL (8.5-10.1); CARBON DIOXIDE 25.1 mmol/L (21.0-32.0); CREATININE - SERUM 2.2 mg/dL (0.6-1.3); POTASSIUM - SERUM 3.4 mmol/L (3.5-5.1); PROTEIN - SERUM 6.1 g/dL (6.4-8.2)
[2017-09-12 08:24] VITALS: BP 96/64
[2017-09-12 09:57] LABS: HEMATOCRIT 29.2 % (42.0-54.0); HEMOGLOBIN 9.1 g/dL (13.5-17.5)
[2017-09-12 11:36] VITALS: BP 100/60
[2017-09-12 15:41] VITALS: BP 108/68
[2017-09-12 15:49] LABS: HEMATOCRIT 29.1 % (42.0-54.0)
[2017-09-12 20:00] VITALS: BP 126/58
[2017-09-12 22:14] LABS: HEMATOCRIT 28.6 % (42.0-54.0); HEMOGLOBIN 8.8 g/dL (13.5-17.5)
[2017-09-13] VITALS: BP 128/70
[2017-09-13 04:00] VITALS: BP 130/60
[2017-09-13 05:54] LABS: BASOPHILS 0.1 % (0-2); EOSINOPHILS 1.5 % (0-7); HEMATOCRIT 29.1 % (42.0-54.0); IMMATURE GRANULOCYTES 0.5 % (0-5); LYMPHOCYTES 6.9 % (15-50); MCH 27.8 pg (26.0-34.0); MCHC 30.9 g/dL (31.0-37.0); MCV 89.8 fL (80.0-100.0); MEAN PLATELET VOLUME 9.8 fL (7.4-10.4); MONOCYTES 8.5 % (2-11); NEUTROPHILS 82.5 % (40-80); PLATELET COUNT 305 10x3/uL (130-400); RBC 3.24 10x6/uL (4.20-6.10); RDW 16.6 % (11.5-14.5); WBC 15.6 10x3/uL (4.8-10.8)
[2017-09-13 06:27] LABS: ALBUMIN 1.6 g/dL (3.4-5.0); ANION GAP 12.9 mmol/L (8-16); BILIRUBIN - TOTAL 1.37 mg/dL (0.2-1.3); CALCIUM 8.7 mg/dL (8.5-10.1); CARBON DIOXIDE 25.8 mmol/L (21.0-32.0); POTASSIUM - SERUM 3.7 mmol/L (3.5-5.1); PROTEIN - SERUM 6.3 g/dL (6.4-8.2)
[2017-09-13 08:42] VITALS: BP 106/63
[2017-09-13 09:45] LABS: HEMATOCRIT 29.5 % (42.0-54.0)
[2017-09-13 11:43] VITALS: BP 102/64
[2017-09-13 15:57] LABS: HEMATOCRIT 29.8 % (42.0-54.0); HEMOGLOBIN 9.1 g/dL (13.5-17.5)
[2017-09-13 17:20] VITALS: BP 107/60
[2017-09-13 20:00] VITALS: BP 119/51
[2017-09-13 21:58] LABS: HEMATOCRIT 29.7 % (42.0-54.0); HEMOGLOBIN 8.9 g/dL (13.5-17.5)
[2017-09-14 04:00] VITALS: BP 116/71
[2017-09-14 08:30] VITALS: BP 120/58
[2017-09-14 11:05] LABS: BASOPHILS 0.1 % (0-2); EOSINOPHILS 1.8 % (0-7); HEMATOCRIT 28.8 % (42.0-54.0); HEMOGLOBIN 8.8 g/dL (13.5-17.5); IMMATURE GRANULOCYTES 0.5 % (0-5); LYMPHOCYTES 6.7 % (15-50); MCH 27.4 pg (26.0-34.0); MCHC 30.6 g/dL (31.0-37.0); MCV 89.7 fL (80.0-100.0); MEAN PLATELET VOLUME 9.2 fL (7.4-10.4); NEUTROPHILS 83.9 % (40-80); PLATELET COUNT 295 10x3/uL (130-400); RBC 3.21 10x6/uL (4.20-6.10); RDW 16.4 % (11.5-14.5); WBC 15.3 10x3/uL (4.8-10.8)
[2017-09-14 11:17] LABS: ALBUMIN 1.6 g/dL (3.4-5.0); ANION GAP 6.2 mmol/L (8-16); BILIRUBIN - TOTAL 1.23 mg/dL (0.2-1.3); CALCIUM 8.5 mg/dL (8.5-10.1); CARBON DIOXIDE 30.4 mmol/L (21.0-32.0); CREATININE - SERUM 1.9 mg/dL (0.6-1.3); POTASSIUM - SERUM 3.6 mmol/L (3.5-5.1); PROTEIN - SERUM 6.4 g/dL (6.4-8.2)
[2017-09-14 11:53] VITALS: BP 126/79
[2017-09-14 16:02] VITALS: BP 112/57
[2017-09-14 20:00] VITALS: BP 116/62
[2017-09-15] VITALS: BP 130/70
[2017-09-15 04:00] VITALS: BP 134/74
[2017-09-15 08:05] VITALS: BP 113/83
[2017-09-15 11:21] VITALS: BP 106/73
[2017-09-15 16:02] VITALS: BP 111/63
[2017-09-15 19:00] VITALS: BP 103/69
[2017-09-16] VITALS: BP 97/58
[2017-09-16 03:35] VITALS: BP 110/63
[2017-09-16 05:16] LABS: BASOPHILS 0.1 % (0-2); EOSINOPHILS 2.1 % (0-7); HEMATOCRIT 26.4 % (42.0-54.0); HEMOGLOBIN 8.1 g/dL (13.5-17.5); IMMATURE GRANULOCYTES 0.3 % (0-5); LYMPHOCYTES 6.1 % (15-50); MCH 27.5 pg (26.0-34.0); MCHC 30.7 g/dL (31.0-37.0); MCV 89.5 fL (80.0-100.0); MEAN PLATELET VOLUME 9.3 fL (7.4-10.4); MONOCYTES 5.6 % (2-11); NEUTROPHILS 85.8 % (40-80); PLATELET COUNT 262 10x3/uL (130-400); RBC 2.95 10x6/uL (4.20-6.10); RDW 16.6 % (11.5-14.5); WBC 12.7 10x3/uL (4.8-10.8)
[2017-09-16 05:46] LABS: ANION GAP 10.9 mmol/L (8-16); CARBON DIOXIDE 26.1 mmol/L (21.0-32.0); CREATININE - SERUM 1.7 mg/dL (0.6-1.3)
[2017-09-16 07:59] VITALS: BP 75/38
[2017-09-16 11:12] VITALS: BP 100/46
[2017-09-16 15:11] VITALS: BP 92/52
[2017-09-16 20:00] VITALS: BP 109/61
[2017-09-17 08:53] VITALS: BP 94/65
[2017-09-17 13:36] VITALS: BP 95/63
[2017-09-17 16:27] VITALS: BP 93/56
[2017-09-17 20:00] VITALS: BP 105/59
[2017-09-18] VITALS: BP 90/70
[2017-09-18 04:00] VITALS: BP 115/61
[2017-09-18 06:00] LABS: BASOPHILS 0.2 % (0-2); EOSINOPHILS 1.8 % (0-7); HEMATOCRIT 29.2 % (42.0-54.0); HEMOGLOBIN 8.6 g/dL (13.5-17.5); IMMATURE GRANULOCYTES 0.4 % (0-5); LYMPHOCYTES 6.7 % (15-50); MCH 27.7 pg (26.0-34.0); MCHC 29.5 g/dL (31.0-37.0); MCV 93.9 fL (80.0-100.0); MONOCYTES 5.1 % (2-11); NEUTROPHILS 85.8 % (40-80); PLATELET COUNT 269 10x3/uL (130-400); RBC 3.11 10x6/uL (4.20-6.10); RDW 17.3 % (11.5-14.5); WBC 13.2 10x3/uL (4.8-10.8)
[2017-09-18 06:14] LABS: ANION GAP 8.9 mmol/L (8-16); CALCIUM 7.9 mg/dL (8.5-10.1); CARBON DIOXIDE 27.5 mmol/L (21.0-32.0); CREATININE - SERUM 1.6 mg/dL (0.6-1.3); POTASSIUM - SERUM 3.4 mmol/L (3.5-5.1)
[2017-09-18 07:45] VITALS: BP 134/62
[2017-09-18 10:50] VITALS: BP 132/68
[2017-09-18 14:58] VITALS: BP 139/67
[2017-09-18 21:40] VITALS: BP 103/69
[2017-09-19] VITALS (8 sets, daily range): BP systolic 95–164; BP diastolic 53–80
[2017-09-19 05:40] LABS: BASOPHILS 0.1 % (0-2); EOSINOPHILS 1.4 % (0-7); HEMATOCRIT 29.1 % (42.0-54.0); HEMOGLOBIN 8.4 g/dL (13.5-17.5); IMMATURE GRANULOCYTES 0.4 % (0-5); LYMPHOCYTES 7.1 % (15-50); MCH 27.2 pg (26.0-34.0); MCHC 28.9 g/dL (31.0-37.0); MCV 94.2 fL (80.0-100.0); MEAN PLATELET VOLUME 9.5 fL (7.4-10.4); MONOCYTES 5.9 % (2-11); NEUTROPHILS 85.1 % (40-80); PLATELET COUNT 232 10x3/uL (130-400); RBC 3.09 10x6/uL (4.20-6.10); RDW 17.5 % (11.5-14.5); WBC 11.2 10x3/uL (4.8-10.8)
[2017-09-19 06:07] LABS: ANION GAP 9.4 mmol/L (8-16); CALCIUM 8.5 mg/dL (8.5-10.1); CARBON DIOXIDE 28.1 mmol/L (21.0-32.0); CREATININE - SERUM 1.7 mg/dL (0.6-1.3); POTASSIUM - SERUM 3.5 mmol/L (3.5-5.1)
[2017-09-20 00:15] VITALS: BP 95/61
[2017-09-20 06:00] VITALS: BP 112/74
[2017-09-20 07:50] VITALS: BP 110/71
[2017-09-20 12:00] VITALS: BP 108/69
[2017-09-20 16:27] VITALS: BP 104/64
[2017-09-20 20:00] VITALS: BP 97/65
[2017-09-21] VITALS: BP 132/54
[2017-09-21 05:57] VITALS: BP 113/72
[2017-09-21 06:32] LABS: ANION GAP 9.1 mmol/L (8-16); CALCIUM 8.2 mg/dL (8.5-10.1); CARBON DIOXIDE 29.2 mmol/L (21.0-32.0); CREATININE - SERUM 1.7 mg/dL (0.6-1.3); POTASSIUM - SERUM 4.3 mmol/L (3.5-5.1)
[2017-09-21 06:44] LABS: BASOPHILS 0.1 % (0-2); EOSINOPHILS 0.3 % (0-7); HEMATOCRIT 30.7 % (42.0-54.0); HEMOGLOBIN 8.8 g/dL (13.5-17.5); IMMATURE GRANULOCYTES 0.3 % (0-5); LYMPHOCYTES 6.1 % (15-50); MCH 27.3 pg (26.0-34.0); MCHC 28.7 g/dL (31.0-37.0); MCV 95.3 fL (80.0-100.0); MEAN PLATELET VOLUME 10.7 fL (7.4-10.4); MONOCYTES 5.9 % (2-11); NEUTROPHILS 87.3 % (40-80); PLATELET COUNT 231 10x3/uL (130-400); RBC 3.22 10x6/uL (4.20-6.10); RDW 17.9 % (11.5-14.5); WBC 11.6 10x3/uL (4.8-10.8)
[2017-09-21 09:37] VITALS: BP 114/68
[2017-09-21 11:50] VITALS: BP 112/58
[2017-09-21 16:20] VITALS: BP 102/55
[2017-09-21 20:00] VITALS: BP 103/64
[2017-09-22] VITALS: BP 110/63
[2017-09-22 04:00] VITALS: BP 100/58
[2017-09-22 06:03] LABS: ANION GAP 10.9 mmol/L (8-16); CALCIUM 8.5 mg/dL (8.5-10.1); CARBON DIOXIDE 28.4 mmol/L (21.0-32.0); POTASSIUM - SERUM 4.3 mmol/L (3.5-5.1)
[2017-09-22 06:27] LABS: BASOPHILS 0.1 % (0-2); EOSINOPHILS 0.8 % (0-7); HEMATOCRIT 31.7 % (42.0-54.0); HEMOGLOBIN 8.9 g/dL (13.5-17.5); IMMATURE GRANULOCYTES 0.6 % (0-5); LYMPHOCYTES 5.6 % (15-50); MCH 27.6 pg (26.0-34.0); MCHC 28.1 g/dL (31.0-37.0); MEAN PLATELET VOLUME 10.7 fL (7.4-10.4); MONOCYTES 7.5 % (2-11); NEUTROPHILS 85.4 % (40-80); PLATELET COUNT 210 10x3/uL (130-400); RBC 3.22 10x6/uL (4.20-6.10); RDW 17.8 % (11.5-14.5); WBC 9.7 10x3/uL (4.8-10.8)
[2017-09-22 06:28] LABS: MCV 98.4 fL (80.0-100.0)
[2017-09-22 08:37] VITALS: BP 109/63
[2017-09-22 12:35] VITALS: BP 101/61
[2017-09-22 16:35] VITALS: BP 105/57
[2017-09-22 21:41] VITALS: BP 77/39
[2017-09-23 00:41] VITALS: BP 108/43
[2017-09-23 05:32] VITALS: BP 102/55
[2017-09-23 06:44] LABS: BASOPHILS 0.3 % (0-2); EOSINOPHILS 1.3 % (0-7); HEMATOCRIT 30.9 % (42.0-54.0); HEMOGLOBIN 8.8 g/dL (13.5-17.5); IMMATURE GRANULOCYTES 0.5 % (0-5); LYMPHOCYTES 7.5 % (15-50); MCH 27.8 pg (26.0-34.0); MCHC 28.5 g/dL (31.0-37.0); MCV 97.5 fL (80.0-100.0); MEAN PLATELET VOLUME 11.1 fL (7.4-10.4); MONOCYTES 8.1 % (2-11); NEUTROPHILS 82.3 % (40-80); PLATELET COUNT 217 10x3/uL (130-400); RBC 3.17 10x6/uL (4.20-6.10); RDW 18.1 % (11.5-14.5); WBC 9.5 10x3/uL (4.8-10.8)
[2017-09-23 06:50] LABS: ANION GAP 11.1 mmol/L (8-16); CALCIUM 8.4 mg/dL (8.5-10.1); CARBON DIOXIDE 28.3 mmol/L (21.0-32.0); CREATININE - SERUM 2.5 mg/dL (0.6-1.3); POTASSIUM - SERUM 4.4 mmol/L (3.5-5.1)
[2017-09-23 07:33] VITALS: BP 105/64
[2017-09-23 11:31] VITALS: BP 107/68
[2017-09-23 15:56] VITALS: BP 100/59
[2017-09-23 20:00] VITALS: BP 110/62
[2017-09-24] VITALS: BP 114/80
[2017-09-24 05:44] LABS: BASOPHILS 0.1 % (0-2); EOSINOPHILS 0 % (0-7); HEMATOCRIT 29.4 % (42.0-54.0); HEMOGLOBIN 8.7 g/dL (13.5-17.5); IMMATURE GRANULOCYTES 0.4 % (0-5); LYMPHOCYTES 3.3 % (15-50); MCH 27.9 pg (26.0-34.0); MCHC 29.6 g/dL (31.0-37.0); MONOCYTES 1.4 % (2-11); NEUTROPHILS 94.8 % (40-80); PLATELET COUNT 207 10x3/uL (130-400); RBC 3.12 10x6/uL (4.20-6.10); RDW 18.3 % (11.5-14.5)
[2017-09-24 05:51] LABS: MCV 94.2 fL (80.0-100.0)
[2017-09-24 06:04] LABS: ANION GAP 11.9 mmol/L (8-16); CARBON DIOXIDE 26.7 mmol/L (21.0-32.0); CREATININE - SERUM 2.7 mg/dL (0.6-1.3); POTASSIUM - SERUM 4.6 mmol/L (3.5-5.1)
[2017-09-24 09:51] VITALS: BP 121/79
[2017-09-24 10:45] VITALS: BP 132/81
[2017-09-24 15:35] VITALS: BP 138/88
[2017-09-24 20:54] VITALS: BP 113/68
[2017-09-25] VITALS (19 sets, daily range): BP systolic 90–115; BP diastolic 58–87; Ht 182.9 cm; Wt 134.8 kg
[2017-09-25 05:45] LABS: BASOPHILS 0 % (0-2); EOSINOPHILS 0 % (0-7); HEMATOCRIT 29.3 % (42.0-54.0); HEMOGLOBIN 8.6 g/dL (13.5-17.5); IMMATURE GRANULOCYTES 0.2 % (0-5); LYMPHOCYTES 4.1 % (15-50); MCH 27.3 pg (26.0-34.0); MCHC 29.4 g/dL (31.0-37.0); MEAN PLATELET VOLUME 10.9 fL (7.4-10.4); MONOCYTES 5.1 % (2-11); NEUTROPHILS 90.6 % (40-80); PLATELET COUNT 216 10x3/uL (130-400); RBC 3.15 10x6/uL (4.20-6.10); RDW 18.6 % (11.5-14.5); WBC 8.5 10x3/uL (4.8-10.8)
[2017-09-25 06:02] LABS: ANION GAP 11.3 mmol/L (8-16); CARBON DIOXIDE 26.2 mmol/L (21.0-32.0); POTASSIUM - SERUM 4.5 mmol/L (3.5-5.1)
[2017-09-25 06:32] LABS: APTT 30.1 SECONDS (22.8-39.4); INR 1.23 (0.85-1.17); PROTIME 15.1 SECONDS (11.6-15.0)
[2017-09-25 13:12] LABS: PROTEIN - BODY FLUID 1.1 G/DL
[2017-09-25 13:47] LABS: MACROPHAGES BF 14 %
[2017-09-25 16:11] LABS: CHOLESTEROL - BODY FLUID 14 mg/dL; TRIGLYCERIDE - BODY FLUID 3 mg/dL
[2017-09-26] VITALS (13 sets, daily range): BP systolic 94–113; BP diastolic 59–80
[2017-09-26 06:28] LABS: CREATININE - URINE 84.1 mg/dL (30-125); PRO/CRE RATIO URINE 2.8 mg/g; PROTEIN - URINE 234.2 mg/dL (0.0-11.9)
[2017-09-26 06:29] LABS: APPEARANCE CLOUDY (CLEAR); BILIRUBIN NEGATIVE (NEGATIVE); COLOR DK YELLOW (YELLOW); GLUCOSE 50 mg/dL (NEGATIVE); KETONE NEGATIVE (NEGATIVE); NITRITE NEGATIVE (NEGATIVE); PROTEIN 2+ mg/dL (NEGATIVE); SPECIFIC GRAVITY 1.015 (1.005-1.020); UROBILINOGEN NORMAL (NORMAL)
[2017-09-26 06:34] LABS: BACTERIA MODERATE /hpf (NONE SEEN); EPITHELIAL CELLS 0-5 /hpf (0-5)
[2017-09-26 07:45] LABS: BASOPHILS 0 % (0-2); EOSINOPHILS 0 % (0-7); HEMATOCRIT 30.1 % (42.0-54.0); IMMATURE GRANULOCYTES 0.2 % (0-5); LYMPHOCYTES 3.2 % (15-50); MCH 27.9 pg (26.0-34.0); MCHC 29.9 g/dL (31.0-37.0); MCV 93.2 fL (80.0-100.0); MEAN PLATELET VOLUME 9.9 fL (7.4-10.4); MONOCYTES 4.4 % (2-11); NEUTROPHILS 92.2 % (40-80); PLATELET COUNT 188 10x3/uL (130-400); RBC 3.23 10x6/uL (4.20-6.10); WBC 8.6 10x3/uL (4.8-10.8)
[2017-09-26 08:14] LABS: % SATURATION 25 % (15-55); IRON 58 ug/dl (35-150); TOTAL IRON BIND CAPACITY 227 ug/dl (260-445); UNSAT IRON BIND CAPACITY 169 ug/dl (150-375)
[2017-09-26 08:26] LABS: ALBUMIN 2.1 g/dL (3.4-5.0); ANION GAP 11.6 mmol/L (8-16); BILIRUBIN - TOTAL 0.74 mg/dL (0.2-1.3); CALCIUM 9.1 mg/dL (8.5-10.1); CARBON DIOXIDE 27.3 mmol/L (21.0-32.0); CREATININE - SERUM 3.3 mg/dL (0.6-1.3); POTASSIUM - SERUM 4.9 mmol/L (3.5-5.1)
[2017-09-27 00:30] VITALS: BP 94/58
[2017-09-27 06:24] VITALS: BP 94/65
[2017-09-27 08:21] VITALS: BP 109/74
[2017-09-27 12:26] VITALS: BP 110/86
[2017-09-27 15:26] VITALS: BP 98/59
[2017-09-28] VITALS: BP 105/79
[2017-09-28 04:00] VITALS: BP 100/65
[2017-09-28 07:54] VITALS: BP 108/68
[2017-09-28 08:52] LABS: ANION GAP 14.1 mmol/L (8-16); CALCIUM 8.9 mg/dL (8.5-10.1); CARBON DIOXIDE 24.1 mmol/L (21.0-32.0); CREATININE - SERUM 3.8 mg/dL (0.6-1.3); POTASSIUM - SERUM 4.2 mmol/L (3.5-5.1)
[2017-09-28 10:41] VITALS: BP 110/71
[2017-09-28 15:15] VITALS: BP 92/67
[2017-09-28 18:10] LABS: AFB SPECIMEN PROCESSING Not Indicated (())
[2017-09-28 20:00] VITALS: BP 112/56; BP 151/48
[2017-09-29] VITALS (7 sets, daily range): BP systolic 94–160; BP diastolic 56–80
[2017-09-29 11:18] LABS: FUNGUS STAIN Final report (())
[2017-09-29 11:37] LABS: CREATININE - URINE 78.5 mg/dL (30-125)
[2017-09-29 11:38] LABS: PRO/CRE RATIO URINE 3.5 mg/g; PROTEIN - URINE 276.5 mg/dL (0.0-11.9)
[2017-09-29 11:42] LABS: APPEARANCE CLOUDY (CLEAR); BILIRUBIN NEGATIVE (NEGATIVE); COLOR DK YELLOW (YELLOW); GLUCOSE NEGATIVE (NEGATIVE); KETONE SMALL mg/dL (NEGATIVE); NITRITE NEGATIVE (NEGATIVE); PROTEIN 2+ mg/dL (NEGATIVE); RED CELLS - URINE >50 /hpf (0-5); SPECIFIC GRAVITY 1.015 (1.005-1.020); UROBILINOGEN NORMAL (NORMAL)
[2017-09-29 11:43] LABS: BACTERIA MODERATE /hpf (NONE SEEN); EPITHELIAL CELLS OCC /hpf (0-5); MUCUS <1+ /lpf (NONE SEEN)
[2017-09-30 04:00] VITALS: BP 100/64
[2017-09-30 06:22] LABS: BASOPHILS 0 % (0-2); EOSINOPHILS 0 % (0-7); HEMOGLOBIN 9.5 g/dL (13.5-17.5); IMMATURE GRANULOCYTES 0.4 % (0-5); LYMPHOCYTES 2.6 % (15-50); MCHC 30.6 g/dL (31.0-37.0); MCV 91.4 fL (80.0-100.0); MEAN PLATELET VOLUME 11.4 fL (7.4-10.4); MONOCYTES 5.2 % (2-11); NEUTROPHILS 91.8 % (40-80); PLATELET COUNT 168 10x3/uL (130-400); RBC 3.39 10x6/uL (4.20-6.10); RDW 19.9 % (11.5-14.5); WBC 10.9 10x3/uL (4.8-10.8)
[2017-09-30 06:46] LABS: ALBUMIN 2.1 g/dL (3.4-5.0); ANION GAP 14.9 mmol/L (8-16); BILIRUBIN - DIRECT 0.24 mg/dL (0.00-0.30); BILIRUBIN - INDIRECT 0.46 mg/dL (0.00-1.00); BILIRUBIN - TOTAL 0.7 mg/dL (0.2-1.3); CALCIUM 8.1 mg/dL (8.5-10.1); CARBON DIOXIDE 22.9 mmol/L (21.0-32.0); CREATININE - SERUM 3.7 mg/dL (0.6-1.3); POTASSIUM - SERUM 3.8 mmol/L (3.5-5.1); PROTEIN - SERUM 6.4 g/dL (6.4-8.2)
[2017-09-30 09:23] VITALS: BP 109/60
[2017-09-30 11:30] VITALS: BP 98/62
[2017-09-30 17:47] VITALS: BP 90/53
[2017-09-30 20:21] LABS: CREATININE - URINE 55.5 mg/dL (30-125); PROTEIN - URINE 145.5 mg/dL (0.0-11.9)
[2017-09-30 20:32] LABS: CREATININE - SERUM 3.7 mg/dL (0.6-1.3)
[2017-09-30 20:53] LABS: CREATININE - URINE 55.5 mg/dL (30-125)
[2017-09-30 21:06] VITALS: BP 98/53
[2017-10-01 00:58] VITALS: BP 100/63
[2017-10-01 04:00] VITALS: BP 104/62
[2017-10-01 06:57] LABS: BASOPHILS 0 % (0-2); EOSINOPHILS 0.1 % (0-7); HEMATOCRIT 30.2 % (42.0-54.0); HEMOGLOBIN 9.3 g/dL (13.5-17.5); IMMATURE GRANULOCYTES 0.3 % (0-5); LYMPHOCYTES 2.5 % (15-50); MCH 27.9 pg (26.0-34.0); MCHC 30.8 g/dL (31.0-37.0); MCV 90.7 fL (80.0-100.0); MONOCYTES 5.7 % (2-11); NEUTROPHILS 91.4 % (40-80); PLATELET COUNT 152 10x3/uL (130-400); RBC 3.33 10x6/uL (4.20-6.10); RDW 19.8 % (11.5-14.5); WBC 11.7 10x3/uL (4.8-10.8)
[2017-10-01 07:15] LABS: ANION GAP 15.7 mmol/L (8-16); CALCIUM 8.2 mg/dL (8.5-10.1); CARBON DIOXIDE 21.9 mmol/L (21.0-32.0); CREATININE - SERUM 3.8 mg/dL (0.6-1.3); POTASSIUM - SERUM 3.6 mmol/L (3.5-5.1)
[2017-10-01 08:34] VITALS: BP 125/88
[2017-10-01 11:47] VITALS: BP 97/50
[2017-10-01 16:15] VITALS: BP 111/49
[2017-10-01 20:26] VITALS: BP 129/54
[2017-10-02 00:34] VITALS: BP 131/61
[2017-10-02 04:00] VITALS: BP 109/67
[2017-10-02 04:08] LABS: BASOPHILS 0 % (0-2); EOSINOPHILS 0 % (0-7); HEMATOCRIT 30.7 % (42.0-54.0); HEMOGLOBIN 9.5 g/dL (13.5-17.5); IMMATURE GRANULOCYTES 0.6 % (0-5); LYMPHOCYTES 3.1 % (15-50); MCH 27.9 pg (26.0-34.0); MCHC 30.9 g/dL (31.0-37.0); MCV 90.3 fL (80.0-100.0); MEAN PLATELET VOLUME 11.4 fL (7.4-10.4); MONOCYTES 3.9 % (2-11); NEUTROPHILS 92.4 % (40-80); PLATELET COUNT 140 10x3/uL (130-400); RDW 19.9 % (11.5-14.5); WBC 12.1 10x3/uL (4.8-10.8)
[2017-10-02 04:43] LABS: ANION GAP 16.7 mmol/L (8-16); CALCIUM 8.2 mg/dL (8.5-10.1); CARBON DIOXIDE 21.3 mmol/L (21.0-32.0); CREATININE - SERUM 3.7 mg/dL (0.6-1.3)
[2017-10-02 08:38] VITALS: BP 101/63
[2017-10-02 10:43] VITALS: BP 104/70
[2017-10-02 15:34] VITALS: BP 100/54
[2017-10-02 20:30] VITALS: BP 109/65
[2017-10-03 04:30] VITALS: BP 110/63
[2017-10-03 06:09] LABS: BASOPHILS 0 % (0-2); EOSINOPHILS 0 % (0-7); HEMATOCRIT 30.6 % (42.0-54.0); HEMOGLOBIN 9.5 g/dL (13.5-17.5); IMMATURE GRANULOCYTES 0.9 % (0-5); LYMPHOCYTES 5.5 % (15-50); MCV 90.3 fL (80.0-100.0); MEAN PLATELET VOLUME 11.5 fL (7.4-10.4); MONOCYTES 4.1 % (2-11); NEUTROPHILS 89.5 % (40-80); PLATELET COUNT 128 10x3/uL (130-400); RBC 3.39 10x6/uL (4.20-6.10); RDW 20.3 % (11.5-14.5); WBC 13.2 10x3/uL (4.8-10.8)
[2017-10-03 06:24] LABS: ANION GAP 13.1 mmol/L (8-16); CALCIUM 8.2 mg/dL (8.5-10.1); POTASSIUM - SERUM 4.1 mmol/L (3.5-5.1)
[2017-10-03 08:22] VITALS: BP 100/64
[2017-10-03 11:05] LABS: APPEARANCE HAZY (CLEAR); COLOR YELLOW (YELLOW); GLUCOSE NEGATIVE (NEGATIVE); KETONE NEGATIVE (NEGATIVE); NITRITE NEGATIVE (NEGATIVE); PROTEIN TRACE mg/dL (NEGATIVE); SPECIFIC GRAVITY 1.015 (1.005-1.020); UROBILINOGEN NORMAL (NORMAL)
[2017-10-03 11:06] LABS: BILIRUBIN NEGATIVE (NEGATIVE)
[2017-10-03 11:08] LABS: BACTERIA MODERATE /hpf (NONE SEEN); EPITHELIAL CELLS 0-5 /hpf (0-5); MUCUS <1+ /lpf (NONE SEEN); RED CELLS - URINE >50 /hpf (0-5); WHITE CELLS - URINE 25-50 /hpf (0-5)
[2017-10-03 11:09] LABS: GRANULAR CAST OCC /lpf (NONE SEEN); HYALINE CAST OCC /lpf (NONE SEEN)
[2017-10-03 11:55] VITALS: BP 103/54
[2017-10-03 16:18] VITALS: BP 124/63
[2017-10-03 21:53] VITALS: BP 107/63
[2017-10-04 02:40] VITALS: BP 99/64
[2017-10-04 06:29] LABS: BASOPHILS 0 % (0-2); EOSINOPHILS 0.1 % (0-7); HEMATOCRIT 30.6 % (42.0-54.0); HEMOGLOBIN 9.6 g/dL (13.5-17.5); LYMPHOCYTES 6.5 % (15-50); MCH 28.2 pg (26.0-34.0); MCHC 31.4 g/dL (31.0-37.0); MEAN PLATELET VOLUME 11.7 fL (7.4-10.4); MONOCYTES 5.8 % (2-11); NEUTROPHILS 86.6 % (40-80); PLATELET COUNT 122 10x3/uL (130-400); RDW 20.2 % (11.5-14.5); WBC 11.4 10x3/uL (4.8-10.8)
[2017-10-04 06:40] LABS: INR 1.25 (0.85-1.17); PROTIME 15.3 SECONDS (11.6-15.0)
[2017-10-04 06:44] VITALS: BP 121/75
[2017-10-04 06:44] LABS: ANION GAP 14.9 mmol/L (8-16); CALCIUM 8.1 mg/dL (8.5-10.1); CARBON DIOXIDE 23.1 mmol/L (21.0-32.0); CREATININE - SERUM 3.9 mg/dL (0.6-1.3)
[2017-10-04 10:17] VITALS: BP 103/74
[2017-10-04 12:33] VITALS: BP 103/71
[2017-10-04 18:36] VITALS: BP 98/54
[2017-10-04 20:00] VITALS: BP 125/67
[2017-10-05 04:00] VITALS: BP 116/65
[2017-10-05 07:30] LABS: HEPATITIS C ANTIBODY 0.1 (0.0-0.9)
[2017-10-05 08:25] VITALS: BP 88/58
[2017-10-05 12:03] LABS: BASOPHILS 0 % (0-2); EOSINOPHILS 0.9 % (0-7); HEMATOCRIT 31.4 % (42.0-54.0); HEMOGLOBIN 9.8 g/dL (13.5-17.5); IMMATURE GRANULOCYTES 0.8 % (0-5); LYMPHOCYTES 6.5 % (15-50); MCH 28.2 pg (26.0-34.0); MCHC 31.2 g/dL (31.0-37.0); MCV 90.2 fL (80.0-100.0); MEAN PLATELET VOLUME 10.9 fL (7.4-10.4); MONOCYTES 4.1 % (2-11); NEUTROPHILS 87.7 % (40-80); PLATELET COUNT 119 10x3/uL (130-400); RBC 3.48 10x6/uL (4.20-6.10); RDW 20.4 % (11.5-14.5); WBC 13.2 10x3/uL (4.8-10.8)
[2017-10-05 12:14] LABS: ANION GAP 12.7 mmol/L (8-16); CARBON DIOXIDE 26.8 mmol/L (21.0-32.0); CREATININE - SERUM 4.2 mg/dL (0.6-1.3); POTASSIUM - SERUM 3.5 mmol/L (3.5-5.1)
[2017-10-05 12:28] VITALS: BP 110/72
[2017-10-05 18:47] VITALS: BP 107/68
[2017-10-05 20:00] VITALS: BP 102/66
[2017-10-06] VITALS (7 sets, daily range): BP systolic 97–118; BP diastolic 55–67
[2017-10-06 06:31] LABS: BASOPHILS 0 % (0-2); EOSINOPHILS 0.5 % (0-7); HEMATOCRIT 31.2 % (42.0-54.0); HEMOGLOBIN 9.8 g/dL (13.5-17.5); IMMATURE GRANULOCYTES 1.1 % (0-5); LYMPHOCYTES 4.4 % (15-50); MCH 28.7 pg (26.0-34.0); MCHC 31.4 g/dL (31.0-37.0); MCV 91.2 fL (80.0-100.0); MEAN PLATELET VOLUME 10.5 fL (7.4-10.4); MONOCYTES 5.7 % (2-11); NEUTROPHILS 88.3 % (40-80); PLATELET COUNT 122 10x3/uL (130-400); RBC 3.42 10x6/uL (4.20-6.10); RDW 20.5 % (11.5-14.5); WBC 13.2 10x3/uL (4.8-10.8)
[2017-10-06 07:27] LABS: ANION GAP 13.8 mmol/L (8-16); CALCIUM 8.3 mg/dL (8.5-10.1); CARBON DIOXIDE 26.8 mmol/L (21.0-32.0); POTASSIUM - SERUM 3.6 mmol/L (3.5-5.1)
[2017-10-07 02:33] VITALS: BP 96/61
[2017-10-07 06:02] VITALS: BP 92/58
[2017-10-07 06:08] LABS: BASOPHILS 0.1 % (0-2); EOSINOPHILS 0.8 % (0-7); HEMATOCRIT 28.9 % (42.0-54.0); IMMATURE GRANULOCYTES 0.9 % (0-5); LYMPHOCYTES 4.3 % (15-50); MCH 28.5 pg (26.0-34.0); MCHC 31.1 g/dL (31.0-37.0); MCV 91.5 fL (80.0-100.0); MEAN PLATELET VOLUME 11.6 fL (7.4-10.4); MONOCYTES 5.7 % (2-11); NEUTROPHILS 88.2 % (40-80); PLATELET COUNT 132 10x3/uL (130-400); RBC 3.16 10x6/uL (4.20-6.10); RDW 20.8 % (11.5-14.5); WBC 11.7 10x3/uL (4.8-10.8)
[2017-10-07 06:19] LABS: ANION GAP 11.1 mmol/L (8-16); CARBON DIOXIDE 27.6 mmol/L (21.0-32.0); CREATININE - SERUM 3.7 mg/dL (0.6-1.3); POTASSIUM - SERUM 3.7 mmol/L (3.5-5.1)
[2017-10-07 08:14] VITALS: BP 115/48
[2017-10-07 11:29] VITALS: BP 109/52
[2017-10-07 15:16] VITALS: BP 112/66
[2017-10-07 22:47] VITALS: BP 100/50
[2017-10-08 05:35] LABS: BASOPHILS 0.1 % (0-2); EOSINOPHILS 0.4 % (0-7); HEMATOCRIT 28.6 % (42.0-54.0); HEMOGLOBIN 8.9 g/dL (13.5-17.5); IMMATURE GRANULOCYTES 0.7 % (0-5); LYMPHOCYTES 3.1 % (15-50); MCH 28.5 pg (26.0-34.0); MCHC 31.1 g/dL (31.0-37.0); MCV 91.7 fL (80.0-100.0); MEAN PLATELET VOLUME 10.7 fL (7.4-10.4); MONOCYTES 4.6 % (2-11); NEUTROPHILS 91.1 % (40-80); PLATELET COUNT 119 10x3/uL (130-400); RBC 3.12 10x6/uL (4.20-6.10); RDW 20.9 % (11.5-14.5); WBC 13.6 10x3/uL (4.8-10.8)
[2017-10-08 05:48] LABS: ANION GAP 11.2 mmol/L (8-16); CARBON DIOXIDE 27.7 mmol/L (21.0-32.0); CREATININE - SERUM 3.5 mg/dL (0.6-1.3); POTASSIUM - SERUM 3.9 mmol/L (3.5-5.1)
[2017-10-08 06:39] VITALS: BP 92/64
[2017-10-08 08:27] VITALS: BP 112/70
[2017-10-08 10:58] VITALS: BP 104/53
[2017-10-08 14:46] VITALS: BP 100/58
[2017-10-08 19:00] VITALS: BP 122/66
[2017-10-09 04:00] VITALS: BP 113/74
[2017-10-09 05:47] LABS: BASOPHILS 0.1 % (0-2); EOSINOPHILS 1.1 % (0-7); HEMATOCRIT 31.5 % (42.0-54.0); HEMOGLOBIN 9.8 g/dL (13.5-17.5); IMMATURE GRANULOCYTES 0.7 % (0-5); LYMPHOCYTES 4.5 % (15-50); MCH 28.4 pg (26.0-34.0); MCHC 31.1 g/dL (31.0-37.0); MCV 91.3 fL (80.0-100.0); MEAN PLATELET VOLUME 11.3 fL (7.4-10.4); MONOCYTES 3.6 % (2-11); PLATELET COUNT 123 10x3/uL (130-400); RBC 3.45 10x6/uL (4.20-6.10); WBC 16.8 10x3/uL (4.8-10.8)
[2017-10-09 05:50] LABS: ANION GAP 14.8 mmol/L (8-16); CALCIUM 8.2 mg/dL (8.5-10.1); CARBON DIOXIDE 25.9 mmol/L (21.0-32.0); CREATININE - SERUM 3.2 mg/dL (0.6-1.3); POTASSIUM - SERUM 3.7 mmol/L (3.5-5.1)
[2017-10-09 09:03] VITALS: BP 119/68
[2017-10-09 11:55] VITALS: BP 95/56
[2017-10-09 16:00] VITALS: BP 111/76
[2017-10-09 21:44] VITALS: BP 100/61
[2017-10-10 00:30] VITALS: BP 81/51
[2017-10-10 04:30] VITALS: BP 90/50
[2017-10-10 05:35] LABS: ANION GAP 13.7 mmol/L (8-16); CALCIUM 8.1 mg/dL (8.5-10.1); CARBON DIOXIDE 26.1 mmol/L (21.0-32.0); CREATININE - SERUM 3.1 mg/dL (0.6-1.3); POTASSIUM - SERUM 3.8 mmol/L (3.5-5.1)
[2017-10-10 05:57] LABS: BASOPHILS 0 % (0-2); EOSINOPHILS 1.5 % (0-7); HEMATOCRIT 29.7 % (42.0-54.0); HEMOGLOBIN 9.2 g/dL (13.5-17.5); IMMATURE GRANULOCYTES 0.5 % (0-5); LYMPHOCYTES 4.3 % (15-50); MCH 28.6 pg (26.0-34.0); MCV 92.2 fL (80.0-100.0); MONOCYTES 4.2 % (2-11); NEUTROPHILS 89.5 % (40-80); PLATELET COUNT 116 10x3/uL (130-400); RBC 3.22 10x6/uL (4.20-6.10); RDW 20.7 % (11.5-14.5); WBC 14.9 10x3/uL (4.8-10.8)
[2017-10-10 09:21] VITALS: BP 99/59
[2017-10-10 13:50] VITALS: BP 126/68
[2017-10-10 16:59] VITALS: BP 122/79
[2017-10-10 20:30] VITALS: BP 119/73
[2017-10-11 00:30] VITALS: BP 119/74
[2017-10-11 04:30] VITALS: BP 97/62
[2017-10-11 08:34] VITALS: BP 112/65
[2017-10-11 11:39] VITALS: BP 123/82
[2017-10-11 16:20] VITALS: BP 154/90
[2017-10-11 21:00] VITALS: BP 111/72
[2017-10-12 00:24] VITALS: BP 120/57
[2017-10-12 05:31] VITALS: BP 126/73
[2017-10-12 08:00] VITALS: BP 126/72
[2017-10-12] MEDS ORDERED: CARDIZEM CD120 MG PO (08:31)
[2017-10-12] MEDS ORDERED: PERCOCET 5-3251 TAB PO (08:50)
[2017-10-25 14:16] LABS: FUNGUS MYCOLOGY CULTURE Final report (())
[2017-11-22 13:13] LABS: ACID FAST CULTURE Negative (()); ACID FAST SMEAR Negative (())
== END 2017-10-12 14:21 | DRG 871 ==
LOC: D.M2 23:57 → D.ICU 09-05 02:00 → D.M2 09-09 18:49 → D.ICU 09-25 12:35 → D.M2 09-26 14:05
PROVIDERS: Emergency Medicine; Family Medicine; Family Medicine Adult Medicine; General Practice; Internal Medicine; Internal Medicine Nephrology; Internal Medicine Pulmonary Disease; Radiology Diagnostic Radiology; Student in an Organized Health Care Education/Training Program; Urology
PROC: BT1D1ZZ Fluoroscopy of Right Kidney, Ureter and Bladder using Low Osmolar Contrast (ICD-10-PCS; principal; 2017-09-05 14:00)
PROC: 0T768DZ Dilation of Right Ureter with Intraluminal Device, Via Natural or Artificial Opening Endoscopic (ICD-10-PCS; 2017-09-05 14:00)
PROC: 0T9B80Z Drainage of Bladder with Drainage Device, Via Natural or Artificial Opening Endoscopic (ICD-10-PCS; 2017-09-05 14:00)
PROC: BT1F1ZZ Fluoroscopy of Left Kidney, Ureter and Bladder using Low Osmolar Contrast (ICD-10-PCS; 2017-09-07)
PROC: 0T9130Z Drainage of Left Kidney with Drainage Device, Percutaneous Approach (ICD-10-PCS; 2017-09-07)
PROC: 0TP5X0Z Removal of Drainage Device from Kidney, External Approach (ICD-10-PCS; 2017-09-10)
PROC: 0W993ZZ Drainage of Right Pleural Cavity, Percutaneous Approach (ICD-10-PCS; 2017-09-25)
DX: A41.9 Sepsis, unspecified organism (principal); K66.1 Hemoperitoneum; E43 Unspecified severe protein-calorie malnutrition; J96.01 Acute respiratory failure with hypoxia; J69.0 Pneumonitis due to inhalation of food and vomit; N17.9 Acute kidney failure, unspecified; N13.8 Other obstructive and reflux uropathy; E87.1 Hypo-osmolality and hyponatremia; N39.0 Urinary tract infection, site not specified; N99.512 Cystostomy malfunction; R18.8 Other ascites; N13.30 Unspecified hydronephrosis; N13.1 Hydronephrosis with ureteral stricture, not elsewhere classified; J44.1 Chronic obstructive pulmonary disease with (acute) exacerbation; J94.8 Other specified pleural conditions; K56.609 Unspecified intestinal obstruction, unspecified as to partial versus complete obstruction; J93.83 Other pneumothorax; N40.1 Benign prostatic hyperplasia with lower urinary tract symptoms; I12.9 Hypertensive chronic kidney disease with stage 1 through stage 4 chronic kidney disease, or unspecified chronic kidney disease; N18.9 Chronic kidney disease, unspecified; I48.91 Unspecified atrial fibrillation; I25.10 Atherosclerotic heart disease of native coronary artery without angina pectoris; F10.10 Alcohol abuse, uncomplicated; K74.60 Unspecified cirrhosis of liver; Z87.891 Personal history of nicotine dependence; T83.028A Displacement of other urinary catheter, initial encounter